=== PATIENT | female | born 1950 | race Caucasian/White ===

== ENCOUNTER 2019-10-05 10:14 | Outpatient (CLI) | payer MEDICARE, OTHER ==
[2019-10-05] VITALS (20 sets, daily range): BP systolic 114–143; BP diastolic 78–98
== END 2019-10-05 23:59 | disposition home or self-care (01) ==
LOC: CARD DIAG 10:14
PROVIDERS: ATTEND Internal Medicine Cardiovascular Disease
DX: R55 Syncope and collapse (principal)
CPT/HCPCS: 93660